=== PATIENT | female | born 1995 | race Two or more races ===

== ENCOUNTER 2023-10-29 18:40 | Observation (INO) | payer MEDICAID ==
[~2023-10-29] VITALS: Ht 10.2 cm; Wt 82.6 kg
[2023-10-29] MEDS ORDERED: LACTATED RINGER'S 1,000 ML IV ONE (19:30)
[2023-10-29] MEDS: LACTATED RINGER'S 1,000 ML IV SCH (19:50)
[2023-10-29] MEDS: TERBUTALINE SULFATE 1 MG/ML 1ML VIAL SC SCH (20:02)
[2023-10-29] MEDS ORDERED: PREN-96 PO (22:55)
== END 2023-10-30 00:12 | disposition home or self-care (01) ==
LOC: INTOOBSV 18:40 → LDRP 18:40
PROVIDERS: ADMIT Obstetrics & Gynecology; ATTEND Obstetrics & Gynecology
DX: O26.892 Other specified pregnancy related conditions, second trimester (principal); M54.50 Low back pain, unspecified; Z3A.27 27 weeks gestation of pregnancy; W19.XXXA Unspecified fall, initial encounter; Y93.89 Activity, other specified; Y92.89 Other specified places as the place of occurrence of the external cause; Y99.8 Other external cause status
CPT/HCPCS: 59025; 76815; 81002; 94760; 96360; 96361; 96372; G0378; J3105

== ENCOUNTER → 2023-12-30 | Outpatient (CLI) | payer MEDICAID ==
[~2023-12-30] MED LIST: PREN-96 PO
[2023-12-31 07:07] LABS: RPR Non Reactive (Non Reactive)
[2023-12-31 19:06] LABS: Chlamydia Trachomatis, NAA Negative (Negative); Neisseria gonorrhoeae, NAA Negative (Negative)
== END | disposition home or self-care (01) ==
LOC: LAB 12:15
PROVIDERS: ATTEND Obstetrics & Gynecology
DX: Z34.80 Encounter for supervision of other normal pregnancy, unspecified trimester (principal); Z3A.00 Weeks of gestation of pregnancy not specified
CPT/HCPCS: 86592

== ENCOUNTER 2024-01-15 04:05 | Inpatient (IN) | payer MEDICAID ==
[2024-01-13 11:08] LABS: Basophils # (auto) 0 10 ^3/uL (0-0.2); Basophils % (auto) 0.2 % (0.0-2.0); Eosinophils # (auto) 0 10 ^3/uL (0-0.8); Eosinophils % (auto) 0.6 % (0.0-7.0); Hematocrit 32.5 % (36.0-46.0); Hemoglobin 10.6 g/dL (12.2-16.2); Lymphocytes # (auto) 1.3 10 ^3/uL (0.4-5.4); Lymphocytes % (auto) 18.3 % (10.0-50.0); Mean Corpuscular Hemoglobin 28.2 pg (28.0-32.0); Mean Corpuscular Hgb Conc. 32.6 g/dL (32.0-36.0); Mean Corpuscular Volume 86.4 fL (80.0-100.0); Monocytes # (auto) 0.6 10 ^3/uL (0-1.3); Monocytes % (auto) 8.5 % (0.0-12.0); Neutrophils % (auto) 72.4 % (37.0-80.0); Nucleated Red Blood Cells % 0.2 %; Red Blood Cells 3.76 10^6/uL (4.0-5.20); Red Cell Distribution Width 16.3 % (11.8-14.3); White Blood Cell 6.9 10^3/uL (4.4-10.8)
[2024-01-13 11:18] LABS: Urine Bacteria FEW /hpf (None Seen); Urine Blood Negative /uL (Negative); Urine Budding Yeast OCCASIONAL /hpf (None Seen); Urine Clarity Turbid (Clear); Urine Color Light-Yellow (Yellow); Urine Mucus FEW (None Seen); Urine Protein, UAD Negative (Negative); Urine Urobilinogen Normal (Negative); Urine WBC 2 /hpf (0 - 5)
[2024-01-13 11:23] LABS: Amphetamine Screen, Urine Neg (NEGATIVE); Barbiturate Scree,Urine Neg (NEGATIVE); Benzodiazephine Screen, Urine Neg (NEGATIVE); Cocaine Screen, Urine Neg (NEGATIVE); Opiate Scree,Urine Neg (NEGATIVE)
[2024-01-13 11:24] LABS: Cannabinoid Screen, Urine Neg (NEGATIVE); Phencyclidine Screen, Urine Neg (NEGATIVE)
[2024-01-13 11:27] LABS: Alanine Aminotransferase 15 U/L (7-40); Albumin 3.3 g/dL (3.2-4.8); Alkaline Phosphatase 164 U/L (46-116); Anion Gap 6 (5-15); Aspartate Aminotransferase 15 U/L (13-40); Calcium 8.9 mg/dL (8.5-10.1); Carbon Dioxide 22 mmol/L (20-30); Chloride 109 mmol/L (98-107); Glucose 84 mg/dL (74-106); Potassium 3.7 mmol/L (3.5-5.1); Sodium 137 mmol/L (136-145)
[2024-01-13 11:28] LABS: BUN/Creatinine Ratio 14.7 (10.0-20.0); Bilirubin, Total 0.8 mg/dL (0.2-1.0); Blood Urea Nitrogen < 5 mg/dL (9-23); Total Protein 5.6 g/dL (5.7-8.2)
[2024-01-13 11:29] LABS: INR 0.98 (0.9-1.15); Prothrombin Time 10.4 sec (9.3-11.8)
[2024-01-14 06:06] LABS: RPR Non Reactive (Non Reactive)
[~2024-01-15] VITALS: Ht 162.6 cm; Wt 84.4 kg
[2024-01-15] MEDS: LACTATED RINGER'S 1,000 ML IV ONE (04:45)
[2024-01-15] MEDS: LACTATED RINGER'S 1,000 ML IV SCH (05:33)
[2024-01-15] MEDS ORDERED: fentaNYL CITRATE 100 MCG/2 ML VL ONE (06:49)
[2024-01-15] MEDS ORDERED: MORPHINE SULF PF 5 MG/10 ML VIAL ONE (06:49)
[2024-01-15] MEDS ORDERED: oxyTOCIN 10 UNIT/ML 10ML VIAL ONE (06:50)
[2024-01-15] MEDS ORDERED: ONDANSETRON HCL 4 MG/2 ML VIAL ONE (06:50)
[2024-01-15] MEDS ORDERED: DexAMETHasone SOD PHOS 10MG/1ML VIAL INJ ONE (06:50)
[2024-01-15] MEDS: ceFAZolin 2 GM/D5W50ml 50 ML IV ONE (07:07)
[2024-01-15] MEDS ORDERED: ceFAZolin 1GM/50ML 50 ML IV SCH (07:15)
[2024-01-15] MEDS: LACT. RINGERS/OXYTOCIN 20UNITS 1,000 ML IV ONE (07:15)
[2024-01-15] MEDS: GUM (CHEWING) 1 GUM CHEW CHEW ONE (07:15)
[2024-01-15] MEDS ORDERED: ONDANSETRON HCL 4 MG/2 ML VIAL IV PRN ×2 (07:15→09:00)
[2024-01-15] MEDS ORDERED: DOCU-94 PO (07:17)
[2024-01-15] MEDS ORDERED: HYDR-4902 PO (07:17)
[2024-01-15] MEDS ORDERED: IBUP-1456 PO (07:17)
[2024-01-15] MEDS: CARBOPROST TROMETHAMINE 250 MCG/1ML VIAL IM ONE (08:00)
[2024-01-15] MEDS: DIPHENOXYLATE W/ATROPINE 2.5 MG TAB PO ONE (08:30)
[2024-01-15 08:41] VITALS: PULSE 104; RESP 16; O2SAT 93
[2024-01-15] MEDS: NALBUPHINE HCL 10 MG/1ml INJECTION IV ONE (09:00)
[2024-01-15] MEDS ORDERED: NALOXONE HCL 0.4 MG/ML VIAL IV PRN (09:00)
[2024-01-15] MEDS ORDERED: HYDROmorphone HCL 2 MG/ML VL/or syr IV PRN (09:00)
[2024-01-15 09:15] VITALS: BP 111/60; PULSE 72; RESP 17; TEMP 97.4; O2SAT 97
[2024-01-15] MEDS: ACETAMINOPHEN IV 1000 MG/100ML (10MG/ML) IV PRN (10:46)
[2024-01-15 11:15] VITALS: TEMP 97.4
[2024-01-15] MEDS: ceFAZolin 1GM/50ML 50 ML IV SCH (14:46)
[2024-01-15 14:54] VITALS: TEMP 97.4
[2024-01-15 18:06] LABS: Treponema pallidum Ab (FTA-Ab) Non Reactive (Non Reactive)
[2024-01-15 19:00] VITALS: BP 115/56; PULSE 73; RESP 16; TEMP 97.4; O2SAT 98
[2024-01-15 22:25] LABS: Basophils # (auto) 0 10 ^3/uL (0-0.2); Basophils % (auto) 0.2 % (0.0-2.0); Eosinophils # (auto) 0 10 ^3/uL (0-0.8); Hematocrit 33.4 % (36.0-46.0); Lymphocytes % (auto) 9.3 % (10.0-50.0); Mean Corpuscular Hemoglobin 28.8 pg (28.0-32.0); Mean Corpuscular Hgb Conc. 33.1 g/dL (32.0-36.0); Monocytes % (auto) 9.1 % (0.0-12.0); Neutrophils # (auto) 8.8 10 ^3/uL (1.6-8.6); Neutrophils % (auto) 81.4 % (37.0-80.0); Red Blood Cells 3.83 10^6/uL (4.0-5.20); Red Cell Distribution Width 16.6 % (11.8-14.3); White Blood Cell 10.8 10^3/uL (4.4-10.8)
[2024-01-15 23:00] VITALS: PULSE 66; RESP 16; TEMP 97.6; O2SAT 96
[2024-01-15] MEDS: diphenhdrAMINE HCL 50 MG/1 ML VL IV PRN (23:25)
[2024-01-16] VITALS (7 sets, daily range): BP systolic 91–111; BP diastolic 51–61; PULSE 60–85; RESP 16–20; TEMP 97.4–98.1; O2SAT 99–100
[2024-01-16] MEDS ORDERED: HYDROcodone-ACET 5/325MG TAB PO PRN ×2 (06:15)
[2024-01-16] MEDS ORDERED: BISACODYL 10 MG RECT SUPP PR PRN (06:15)
[2024-01-16] MEDS: IBUPROFEN 800 MG TAB PO PRN (06:47)
[2024-01-16 08:46] LABS: Basophils # (auto) 0 10 ^3/uL (0-0.2); Basophils % (auto) 0.3 % (0.0-2.0); Eosinophils # (auto) 0 10 ^3/uL (0-0.8); Eosinophils % (auto) 0.4 % (0.0-7.0); Hematocrit 30.7 % (36.0-46.0); Hemoglobin 10.2 g/dL (12.2-16.2); Lymphocytes # (auto) 1.7 10 ^3/uL (0.4-5.4); Lymphocytes % (auto) 19.3 % (10.0-50.0); Mean Corpuscular Hemoglobin 28.9 pg (28.0-32.0); Mean Corpuscular Hgb Conc. 33.1 g/dL (32.0-36.0); Mean Corpuscular Volume 87.3 fL (80.0-100.0); Monocytes # (auto) 0.8 10 ^3/uL (0-1.3); Monocytes % (auto) 9.5 % (0.0-12.0); Neutrophils # (auto) 6.1 10 ^3/uL (1.6-8.6); Neutrophils % (auto) 70.5 % (37.0-80.0); Red Blood Cells 3.52 10^6/uL (4.0-5.20); Red Cell Distribution Width 16.4 % (11.8-14.3); White Blood Cell 8.7 10^3/uL (4.4-10.8)
[2024-01-16] MEDS: DOCUSATE SOD 100 MG CAP PO SCH (09:48)
[2024-01-16] MEDS: DOCUSATE CALCIUM 240 MG CAP PO SCH (09:48)
[2024-01-16] MEDS: SIMETHICONE 80 MG CHEWABLE TABLET PO SCH (13:15)
[2024-01-17 02:55] VITALS: BP 99/55; PULSE 66; RESP 16; TEMP 98.3; O2SAT 99
[2024-01-17 07:06] VITALS: BP 93/55; PULSE 76; RESP 16; TEMP 97.9; O2SAT 97
[2024-01-17 07:08] VITALS: PULSE 76; RESP 16; O2SAT 97
[2024-01-17 07:32] VITALS: TEMP 36.6
[2024-01-17 11:01] VITALS: BP 106/59; PULSE 84; RESP 16; TEMP 98.1; O2SAT 97
== END 2024-01-17 12:45 | disposition home or self-care (01) | DRG 540 ==
LOC: LDRP 04:05
PROVIDERS: ADMIT Obstetrics & Gynecology; ATTEND Obstetrics & Gynecology
PROC: 10D00Z1 Extraction of Products of Conception, Low, Open Approach (ICD-10-PCS; principal; 2024-01-15 07:21)
DX: O34.211 Maternal care for low transverse scar from previous cesarean delivery (principal); D56.3 Thalassemia minor; O69.81X0 Labor and delivery complicated by cord around neck, without compression, not applicable or unspecified; O99.824 Streptococcus B carrier state complicating childbirth; O75.89 Other specified complications of labor and delivery; Z37.0 Single live birth; Z3A.38 38 weeks gestation of pregnancy
CPT/HCPCS: 36415; 59025; 80053; 80307; 81001; 85025; 85610; 85730; 86592; 86850; 86900; 86901; 94760; 94762; 96360; 96361; 96366; 96375; G0378; J0131; J1100; J2405; J2590

== ENCOUNTER → 2024-10-26 | Outpatient (CLI) | payer MEDICAID ==
[~2024-10-26] MED LIST changes: +DOCU-94 PO; +HYDR-4902 PO; +IBUP-1456 PO
[2024-10-26 10:59] LABS: Basophils # (auto) 0 10 ^3/uL (0-0.2); Basophils % (auto) 0.8 % (0.0-2.0); Eosinophils # (auto) 0.1 10 ^3/uL (0-0.8); Eosinophils % (auto) 3.3 % (0.0-7.0); Hematocrit 40.1 % (36.0-46.0); Lymphocytes # (auto) 1.3 10 ^3/uL (0.4-5.4); Lymphocytes % (auto) 32.5 % (10.0-50.0); Mean Corpuscular Hemoglobin 27.6 pg (28.0-32.0); Mean Corpuscular Hgb Conc. 32.3 g/dL (32.0-36.0); Mean Corpuscular Volume 85.4 fL (80.0-100.0); Monocytes # (auto) 0.6 10 ^3/uL (0-1.3); Monocytes % (auto) 15.2 % (0.0-12.0); Neutrophils # (auto) 1.9 10 ^3/uL (1.6-8.6); Neutrophils % (auto) 48.2 % (37.0-80.0); Platelet Count (auto) 188 10^3/uL (140-450); Red Blood Cells 4.69 10^6/uL (4.0-5.20); Red Cell Distribution Width 13.8 % (11.8-14.3); White Blood Cell 3.9 10^3/uL (4.4-10.8)
[2024-10-26 11:40] LABS: Beta HCG, Quantitative 0.9 mIU/mL (1.5-4.2); Follicle Stimulating Hormone 3.09 IU/L (SEE BELOW); Free T4 (Free Thyroxine) 1.18 ng/dL (0.89-1.76); Leuteinizing Hormone 10.4 IU/L; T3 Total 1.25 ng/mL (0.60-1.81)
[2024-10-26 11:41] LABS: Thyroid Stimulating Hormone 0.88 uIU/mL (0.55-4.78)
== END | disposition home or self-care (01) ==
LOC: LAB 10:24
PROVIDERS: ATTEND Obstetrics & Gynecology
DX: N93.9 Abnormal uterine and vaginal bleeding, unspecified (principal); Z79.899 Other long term (current) drug therapy
CPT/HCPCS: 36415; 82670; 83001; 83002; 84403; 84439; 84443; 84480; 84702; 85025